=== PATIENT | female | born 1960 | race Caucasian/White ===

== ENCOUNTER 2023-04-10 08:20 | Day surgery (SDC) | payer OTHER ==
[2023-04-10] MEDS ORDERED: Propofol 200 MG/20 ML SDV ONE (08:59)
[2023-04-10] MEDS ORDERED: Midazolam 1 MG/ML 2 ML SDV ONE (08:59)
[2023-04-10] MEDS ORDERED: fentaNYL 50 MCG/ML SDV ONE (08:59)
[2023-04-10] MEDS ORDERED: Lactated Ringers 1,000 ML IV SCH (09:00)
[2023-04-10] MEDS ORDERED: Scopolamine 1.5 MG Transdermal Patch TOP ONE (10:00)
== END 2023-04-10 11:54 | disposition home or self-care (01) ==
LOC: JP.SDS 08:20
PROVIDERS: ATTEND Student in an Organized Health Care Education/Training Program
DX: K57.30 Diverticulosis of large intestine without perforation or abscess without bleeding (principal); K62.5 Hemorrhage of anus and rectum; Z88.0 Allergy status to penicillin; Z91.030 Bee allergy status
CPT/HCPCS: 45378; A9270; J2250; J2704; J3010; J7120